=== PATIENT | male | born 1965 | race Caucasian/White ===

== ENCOUNTER 2020-10-07 06:37 | Day surgery (SDC) | payer OTHER, SELFPAY ==
[~2020-10-07] VITALS: Ht 185.4 cm; Wt 86.2 kg
[2020-10-07] MEDS ORDERED: diphenhydrAMINE 50 MG/ML VIAL ONE (07:59)
[2020-10-07] MEDS ORDERED: fentaNYL citrate 0.05 MG/ML VIAL ONE (07:59)
[2020-10-07] MEDS ORDERED: MIDAZOLAM 5 MG/5 ML VIAL ONE ×2 (07:59→08:24)
[2020-10-07] MEDS ORDERED: LIDOCAINE 2% 100 MG/5 ML UJET TP ONE (07:59)
[2020-10-07] MEDS ORDERED: fentaNYL citrate 0.05 MG/ML VIAL IVP ONE (10:00)
[2020-10-07] MEDS ORDERED: MIDAZOLAM 2 MG/2 ML VIAL IVP ONE (10:00)
[2020-10-07] MEDS ORDERED: diphenhydrAMINE 50 MG/ML VIAL IVP ONE (10:00)
== END 2020-10-07 09:40 | disposition home or self-care (01) ==
LOC: MDS 06:37 → MFCC 07:11 → MDS 09:40
PROVIDERS: ATTEND Internal Medicine Gastroenterology
DX: Z12.11 Encounter for screening for malignant neoplasm of colon (principal); K63.5 Polyp of colon; F32.9 Major depressive disorder, single episode, unspecified; F41.9 Anxiety disorder, unspecified; Z85.6 Personal history of leukemia; Z79.899 Other long term (current) drug therapy; Z20.828 Contact with and (suspected) exposure to other viral communicable diseases
CPT/HCPCS: 45385; J1200; J2250; J3010; U0003